=== PATIENT | male | born 1960 | race Caucasian/White ===

== ENCOUNTER 2017-04-29 10:53 | Emergency (ER) | payer BC ==
[~2017-04-29] VITALS: Ht 188 cm; Wt 121.8 kg
[~2017-04-29 10:53] MED LIST: IBU-2200 MG PO; LEVAQUIN 5500 MG/TA1 PO; SUDAFED30 MG PO
[2017-04-29 11:00] VITALS: TEMP 98.4
[2017-04-29 11:19] LABS: BASO # 0.1 (0.0-0.2); BASO % 0.9 % (0.0-2.0); EOS # 0.1 (0.0-0.7); EOS % 1.5 % (0-4.0); GRAN # 3.8 (1.4-6.5); GRAN % 56.7 % (42.2-75.2); HEMATOCRIT 46.5 % (42.0-52.0); HEMOGLOBIN 17.1 g/dl (13.5-18.0); LYMPH # 2.2 (1.2-3.4); LYMPH % 32.5 % (20.0-51.0); MEAN CELL VOLUME 85 fl (80.0-100.0); MEAN CORPUSCULAR HEMOGLOBIN 31 pg (27.0-31.0); MEAN CORPUSCULAR HGB CONC 37 g/dl (33.0-37.0); MONO # 0.5 (0.1-0.6); MONO % 8.1 % (1.7-9.3); PLATELET COUNT 206 K/mm3 (130-400); RED BLOOD COUNT 5.46 M/mm3 (4.20-5.60); REDCELL DISTRIBUTION WIDTH-CV 11.8 % (11.5-14.5); WHITE BLOOD COUNT 6.7 K/mm3 (4.8-10.8)
[2017-04-29 11:22] LABS: INR 1.2 (0.8-3.0); PROTHROMBIN TIME 12.8 SECONDS (9.7-12.8)
[2017-04-29 11:28] LABS: ADJUSTED CALCIUM 9.4 mg/dL (8.4-10.2); ALBUMIN 4.5 gm/dL (3.5-5.0); BILIRUBIN,TOTAL 1.1 mg/dL (0.0-1.0); CALCIUM 9.8 mg/dL (8.4-10.2); CREATININE, serum 0.92 mg/dL (0.66-1.25); POTASSIUM 4.1 mmol/L (3.4-5.0); TOTAL PROTEIN 7.5 gm/dL (6.4-8.2)
[2017-04-29 11:39] LABS: TROPONIN-I 0.014 ng/mL (0.000-0.034)
[2017-04-29] MEDS ORDERED: XARELTO20 MG PO (12:13)
[2017-04-29] MEDS ORDERED: CARDIZEM LA120 MG PO (12:29)
[2017-04-29 12:50] VITALS: BP 110/78; PULSE 73
== END 2017-04-29 12:54 | disposition home or self-care (01) ==
LOC: COL.ER 10:53
PROVIDERS: Emergency Medicine
DX: I48.91 Unspecified atrial fibrillation (principal); I48.92 Unspecified atrial flutter; Z79.01 Long term (current) use of anticoagulants

== ENCOUNTER 2017-08-04 09:17 | Outpatient (CLI) | payer BC ==
[~2017-08-04] VITALS: Ht 188 cm; Wt 103.7 kg
[~2017-08-04 09:17] MED LIST changes: +CARDIZEM LA120 MG PO; +XARELTO20 MG PO
[2017-08-04] MEDS ORDERED: MULTAQ400 MG PO (09:36)
[2017-08-04] MEDS ORDERED: FLONASEALLERGY NS (09:39)
[2017-08-04 09:45] VITALS: BP 132/86; PULSE 57; TEMP 98
== END 2017-08-04 11:06 | disposition home or self-care (01) ==
LOC: COL.CAR 09:17
DX: I48.0 Paroxysmal atrial fibrillation (principal)
CPT/HCPCS: 27124; C1764

== ENCOUNTER 2017-08-04 16:23 | Inpatient (IN) | payer BC ==
[~2017-08-04] VITALS: Ht 186.7 cm; Wt 104.5 kg
[~2017-08-04 16:23] MED LIST changes: +FLONASEALLERGY NS; +MULTAQ400 MG PO
[2017-09-07] VITALS (11 sets, daily range): BP systolic 102–148; BP diastolic 51–90; PULSE 66–79; TEMP 98–99
[2017-09-07] MEDS ORDERED: PROTONIX 40MG T40 MG PO (06:34)
[2017-09-07] MEDS ORDERED: COLESTID 1GM1 G PO (06:36)
[2017-09-08 01:41] VITALS: BP 122/62; PULSE 64; TEMP 98.8
[2017-09-08 05:42] VITALS: BP 123/64; PULSE 67; TEMP 98.6
[2017-09-08 06:52] LABS: BASO % 0.2 % (0.0-2.0); GRAN # 7.6 (1.4-6.5); GRAN % 71.8 % (42.2-75.2); HEMATOCRIT 41.8 % (42.0-52.0); HEMOGLOBIN 14.8 g/dl (13.5-18.0); LYMPH # 1.7 (1.2-3.4); LYMPH % 16.2 % (20.0-51.0); MEAN CELL VOLUME 90 fl (80.0-100.0); MEAN CORPUSCULAR HEMOGLOBIN 32 pg (27.0-31.0); MEAN CORPUSCULAR HGB CONC 35 g/dl (33.0-37.0); MEAN PLATELET VOLUME 9.3 fl (7.4-10.4); MONO # 1.2 (0.1-0.6); MONO % 11.5 % (1.7-9.3); PLATELET COUNT 199 K/mm3 (130-400); RED BLOOD COUNT 4.67 M/mm3 (4.20-5.60); REDCELL DISTRIBUTION WIDTH-CV 11.8 % (11.5-14.5)
[2017-09-08 07:07] LABS: CREATININE, serum 1.1 mg/dL (0.66-1.25); POTASSIUM 4.1 mmol/L (3.4-5.0)
[2017-09-08 09:31] VITALS: BP 118/69; PULSE 64; TEMP 99.3
[2017-09-08 14:10] VITALS: BP 103/46; PULSE 60; TEMP 98.5
[2017-09-08 17:31] VITALS: BP 105/55; PULSE 55; TEMP 97.8
[2017-09-08 22:15] VITALS: BP 103/59; PULSE 62; TEMP 98.3
[2017-09-09 01:58] VITALS: BP 101/53; BP 97/49; PULSE 56; TEMP 97.6
[2017-09-09 05:37] VITALS: BP 114/59; PULSE 62; TEMP 98.4
[2017-09-09 09:43] VITALS: BP 118/58; PULSE 66; TEMP 98.6
== END 2017-09-09 13:10 | disposition home or self-care (01) | DRG 708 ==
LOC: INPTSU 09-07 05:51 → SURG 09-07 05:51
PROVIDERS: Urology
PROC: 0VT34ZZ Resection of Bilateral Seminal Vesicles, Percutaneous Endoscopic Approach (ICD-10-PCS; 2017-09-07)
PROC: 8E0W4CZ Robotic Assisted Procedure of Trunk Region, Percutaneous Endoscopic Approach (ICD-10-PCS; 2017-09-07)
PROC: 0VT04ZZ Resection of Prostate, Percutaneous Endoscopic Approach (ICD-10-PCS; principal; 2017-09-07 07:30)
DX: C61 Malignant neoplasm of prostate (principal); I48.91 Unspecified atrial fibrillation; E78.00 Pure hypercholesterolemia, unspecified
CPT/HCPCS: C1713; J0690; J1100; J1170; J1650; J1885; J1956; J2405; J2704; J3010; J7120